=== PATIENT | male | born 1970 ===

== ENCOUNTER 2023-10-05 10:53 | Inpatient (IN) | payer BC, SELFPAY ==
[2023-10-05 14:44] VITALS: BMI 26.1
[2023-10-05] MEDS ORDERED: Senokot S 8.6-50 MG TAB PO PRN (15:08)
[2023-10-05] MEDS ORDERED: Bisacodyl 5 MG TAB PO PRN (15:08)
[2023-10-05] MEDS ORDERED: Ondansetron PF 4 MG/2 ML Vial IVP PRN (15:08)
[2023-10-05] MEDS ORDERED: Bisacodyl 10 MG SUPP PR PRN (15:08)
[2023-10-05 17:07] LABS: PTT 27.2 sec (22.9-36.1)
[2023-10-05 18:12] LABS: Albumin 3.6 g/dL (3.5-5.0); Calcium 8.6 mg/dL (7.8-10.44); Chloride 107 mmol/L (98-107); Potassium 4.2 mmol/L (3.5-5.1); Sodium 137 mmol/L (136-145)
[2023-10-05 18:13] LABS: ALT (SGPT) 12 U/L (8-55); AST (SGOT) 19 U/L (5-34); Alkaline Phosphatase 52 U/L (40-110); Anion Gap 12 mmol/L (10-20); BUN (Urea Nitrogen) 9 mg/dL (8.4-25.7); Bilirubin, Total 0.6 mg/dL (0.2-1.2); Calc. Creatinine Clearance 134 mL/min (70-130); Carbon Dioxide 22 mmol/L (22-29); Estimated GFR 109; Globulin 2.5 g/dL (2.4-3.5); Glucose 100 mg/dL (70-105); Lipase 21 U/L (8-78); Protein, Total 6.1 g/dL (6.0-8.3)
[2023-10-05 18:22] LABS: Troponin I 3.015 ng/mL (< 0.028)
[2023-10-05 19:23] LABS: Critical Call Chem Troponin I NUR.SC14@1923; Troponin I 3.278 ng/mL (< 0.028)
[2023-10-05] MEDS ORDERED: Metoprolol Tartrate 25 MG TAB PO SCH (21:00)
[2023-10-05] MEDS: Nitroglycerin 2% Ointment 1 INCH/1 GM Packet TOP SCH (21:08)
[2023-10-05] MEDS: Atorvastatin Calcium 40 MG TAB PO SCH (21:08)
[2023-10-05] MEDS: Enoxaparin 80 MG (0.8 mL) SYRINGE SC SCH (21:09)
[2023-10-06 03:57] LABS: #Eosinphils 0.1 thou/uL (0.0-0.7); #Monocytes 0.7 thou/uL (0.11-0.59); #Neutrophils 4.1 thou/uL (1.40-6.50); %Basophils 0.4 % (0.0-1.0); %Eosinophils 1.7 % (0.0-10.0); %Lymphocytes 27.8 % (21.0-51.0); %Monocytes 10.3 % (0.0-10.0); %Neutrophils 59.4 % (42.0-75.0); Hematocrit 35.2 % (42.0-52.0); Hemoglobin 11.5 g/dL (14.0-18.0); Mean Corpuscular HGB CONC 32.7 g/dL (32.0-36.0); Mean Corpuscular Hemoglobin 28.3 pg (27.0-31.0); Mean Corpuscular Volume 86.7 fl (78.0-98.0); Mean Platelet Volume 9.8 fL (7.4-10.4); Platelet Count 202 10x3/uL (130-400); RBC Distribution Width 12.7 % (11.5-14.5); Red Blood Cell (RBC) Count 4.06 mill/uL (4.70-6.10); White Blood Cell (WBC) Count 6.9 10x3/uL (4.8-10.8)
[2023-10-06 04:25] LABS: Hemoglobin A1c 5.5 % (4.0-6.0)
[2023-10-06 04:54] LABS: Anion Gap 9 mmol/L (10-20); BUN (Urea Nitrogen) 12 mg/dL (8.4-25.7); Calc. Creatinine Clearance 126 mL/min (70-130); Calcium 8.4 mg/dL (7.8-10.44); Carbon Dioxide 25 mmol/L (22-29); Cardiac Risk 6.5 (Less than 4.5); Chloride 107 mmol/L (98-107); Cholesterol 201 mg/dl (< 200 Desired); Estimated GFR 107; Glucose 101 mg/dL (70-105); HDL Cholesterol 31 mg/dL (>60 Neg Risk); LDL Cholesterol, Calculated 122 mg/dL; Magnesium 2.1 mg/dL (1.6-2.6); Potassium 3.9 mmol/L (3.5-5.1); Sodium 137 mmol/L (136-145); Triglycerides 238 mg/dL (Less than 150)
[2023-10-06 04:55] LABS: ALT (SGPT) 11 U/L (8-55); AST (SGOT) 20 U/L (5-34); Albumin 3.4 g/dL (3.5-5.0); Alkaline Phosphatase 50 U/L (40-110); Bilirubin, Direct 0.1 mg/dL (0.1-0.3); Bilirubin, Total 0.3 mg/dL (0.2-1.2); Protein, Total 5.8 g/dL (6.0-8.3)
[2023-10-06] MEDS: Thyroid 60 MG TAB PO SCH (09:10)
[2023-10-06] MEDS: Aspirin Chewable 81 MG TAB PO SCH (09:10)
[2023-10-06] MEDS ORDERED: Communication Order-Pharmacy FS SCH (20:45)
[2023-10-06] MEDS: Acetaminophen 325 MG TAB PO PRN (23:52)
[2023-10-07 05:43] LABS: #Basophils 0.1 thou/uL (0.0-0.2); #Eosinphils 0.1 thou/uL (0.0-0.7); #Monocytes 0.7 thou/uL (0.11-0.59); #Neutrophils 3.5 thou/uL (1.40-6.50); %Basophils 0.9 % (0.0-1.0); %Eosinophils 1.5 % (0.0-10.0); %Lymphocytes 31.6 % (21.0-51.0); %Monocytes 10.8 % (0.0-10.0); %Neutrophils 54.7 % (42.0-75.0); Hematocrit 41.7 % (42.0-52.0); Hemoglobin 13.5 g/dL (14.0-18.0); Mean Corpuscular HGB CONC 32.4 g/dL (32.0-36.0); Mean Corpuscular Hemoglobin 27.5 pg (27.0-31.0); Mean Corpuscular Volume 84.9 fl (78.0-98.0); Mean Platelet Volume 11.2 fL (7.4-10.4); Platelet Count 162 10x3/uL (130-400); RBC Distribution Width 12.4 % (11.5-14.5); Red Blood Cell (RBC) Count 4.91 mill/uL (4.70-6.10); White Blood Cell (WBC) Count 6.5 10x3/uL (4.8-10.8)
[2023-10-07] MEDS ORDERED: Verapamil 5 MG/2 ML VIAL ONE (06:04)
[2023-10-07] MEDS ORDERED: Heparin 10,000 UNITS/ 10 ML VIAL ONE (06:04)
[2023-10-07] MEDS ORDERED: fentaNYL 50 mcg/mL 1 mL Vial ONE (06:04)
[2023-10-07] MEDS ORDERED: Midazolam HCl 2 mg/2 ml Vial ONE ×2 (06:04→07:03)
[2023-10-07] MEDS ORDERED: Nitroglycerin 50 MG/250 ML BOT 250 ML ONE (06:05)
[2023-10-07] MEDS ORDERED: Lidocaine 1% (PF) 30 ML VIAL ONE (06:05)
[2023-10-07 06:07] LABS: Anion Gap 10 mmol/L (10-20); BUN (Urea Nitrogen) 16 mg/dL (8.4-25.7); Calc. Creatinine Clearance 103 mL/min (70-130); Calcium 8.7 mg/dL (7.8-10.44); Carbon Dioxide 29 mmol/L (22-29); Chloride 103 mmol/L (98-107); Estimated GFR 92; Glucose 97 mg/dL (70-105); Magnesium 2.4 mg/dL (1.6-2.6); Potassium 4.1 mmol/L (3.5-5.1); Sodium 138 mmol/L (136-145)
[2023-10-07] MEDS ORDERED: Ondansetron PF 4 MG/2 ML Vial ONE (07:00)
[2023-10-07] MEDS ORDERED: Sodium Chloride 0.9% 200 ML IV PRN (08:06)
[2023-10-07] MEDS ORDERED: Acetaminophen/Codeine 30-300mg Tablet PO PRN ×2 (08:06)
[2023-10-07] MEDS ORDERED: Nitroglycerin 0.4 MG TAB (25 Tab Bottle) SL PRN (08:06)
[2023-10-07] MEDS ORDERED: Communication Order-Pharmacy FS SCH (11:02)
[2023-10-07] MEDS ORDERED: Iopamidol 370 76% 75 ML VIAL FS ONE (14:26)
[2023-10-08 06:27] LABS: #Eosinphils 0.1 thou/uL (0.0-0.7); #Monocytes 0.9 thou/uL (0.11-0.59); #Neutrophils 5.8 thou/uL (1.40-6.50); %Basophils 0.3 % (0.0-1.0); %Eosinophils 1.3 % (0.0-10.0); %Lymphocytes 20.2 % (21.0-51.0); %Monocytes 10.5 % (0.0-10.0); %Neutrophils 67.2 % (42.0-75.0); Hematocrit 43.5 % (42.0-52.0); Hemoglobin 14.1 g/dL (14.0-18.0); Mean Corpuscular HGB CONC 32.4 g/dL (32.0-36.0); Mean Corpuscular Hemoglobin 27.6 pg (27.0-31.0); Mean Corpuscular Volume 85.3 fl (78.0-98.0); Mean Platelet Volume 11.3 fL (7.4-10.4); Platelet Count 184 10x3/uL (130-400); RBC Distribution Width 12.6 % (11.5-14.5); White Blood Cell (WBC) Count 8.6 10x3/uL (4.8-10.8)
[2023-10-08 06:49] LABS: Anion Gap 14 mmol/L (10-20); BUN (Urea Nitrogen) 12 mg/dL (8.4-25.7); Calc. Creatinine Clearance 112 mL/min (70-130); Calcium 9.1 mg/dL (7.8-10.44); Carbon Dioxide 27 mmol/L (22-29); Chloride 102 mmol/L (98-107); Estimated GFR 102; Glucose 104 mg/dL (70-105); Magnesium 2.2 mg/dL (1.6-2.6); Potassium 4.3 mmol/L (3.5-5.1); Sodium 139 mmol/L (136-145)
[2023-10-08] MEDS ORDERED: Albumin 5% 500 ML ONE (07:04)
[2023-10-08] MEDS ORDERED: PHENYLEPHRINE-NS 100 MCG/ML 10 ML SYRINGE ONE (07:04)
[2023-10-08] MEDS ORDERED: CEFAZOLIN 2 GM VIAL ONE (10:27)
[2023-10-08] MEDS ORDERED: Sodium Chloride 0.9% 100 ML ONE (10:27)
[2023-10-08] MEDS ORDERED: Midazolam HCl 2 mg/2 ml Vial ONE ×3 (10:42→13:02)
[2023-10-08] MEDS ORDERED: Fentanyl 250 MCG/5 ML VIAL ONE (10:42)
[2023-10-08] MEDS ORDERED: PROPOFOL 20 ML ONE (10:42)
[2023-10-08] MEDS ORDERED: Rocuronium Bromide 10 MG/ML (10ML VIAL) ONE (10:44)
[2023-10-08] MEDS ORDERED: Cardioplegic Soln 1,000 ML BAG ONE (11:06)
[2023-10-08] MEDS ORDERED: Protamine Sulfate 250 MG/25 ML VIAL ONE (11:06)
[2023-10-08] MEDS ORDERED: Heparin 30,000 units/30 ml VIAL ONE (11:06)
[2023-10-08] MEDS ORDERED: Esmolol 100 MG/10 ML VIAL ONE (11:06)
[2023-10-08] MEDS ORDERED: Mannitol 12.5 GM/50 ML ONE (11:06)
[2023-10-08] MEDS ORDERED: Heparin 5,000 UNITS/ML VIAL ONE (11:06)
[2023-10-08] MEDS ORDERED: Papaverine 60 MG/2 ML VIAL ONE (11:06)
[2023-10-08] MEDS ORDERED: Potassium Chloride 60 mEq (30 mL) VIAL ONE (11:06)
[2023-10-08] MEDS ORDERED: Calcium Chloride 1 GM/10 ML Abboject SYRINGE ONE (11:06)
[2023-10-08] MEDS ORDERED: Vancomycin 1 GM VIAL ONE (11:06)
[2023-10-08] MEDS ORDERED: Sodium Bicarb 50 mEq/50 ML VIAL ONE (11:06)
[2023-10-08] MEDS ORDERED: Magnesium 5 GM/10 ML VIAL ONE (11:06)
[2023-10-08] MEDS ORDERED: Aminocaproic Acid 5 GM/20 ML VIAL ONE (11:06)
[2023-10-08] MEDS ORDERED: Thrombin 5000 UNITS/5 ML VIAL ONE (11:06)
[2023-10-08] MEDS ORDERED: Lidocaine 2% PF 100 mg/5 ml Syringe ONE (11:06)
[2023-10-08] MEDS ORDERED: ePHEDrine Sulfate 50 MG/10 ML VIAL ONE (11:16)
[2023-10-08] MEDS ORDERED: fentaNYL PF 100 MCG/2 ML SYRINGE ONE (13:02)
[2023-10-08 14:16] LABS: Actual Bicarbonate (HCO3a) 20.8 mEq/L (22-28); Analyzer IN Cardio OR; CO2 Tension 41.4 mmHg (35.0-45.0); Calcium, Ionized (arterial) 1.02 mmol/L (1.12-1.30); Carboxyhemoglobin (COHb) 0.3 gm% (0.0-3.0); Hematocrit-ABG 29 % (42.0-52.0); Hemoglobin (Hb) 9.7 g/dL (14.0-18.0); O2 Tension (PaO2), arterial 270.7 mmHg (80.0-100.0); Potassium - ABG Lab 5.31 mmol/L (3.70-5.30); pH, Arterial 7.319 (7.35-7.45)
[2023-10-08 14:16] LABS: Actual Bicarbonate (HCO3a) 19.7 mEq/L (22-28); Analyzer IN Cardio OR; Base Excess (BEa) -3.9 mEq/L (-2.0 to +3.0); CO2 Tension 31.8 mmHg (35.0-45.0); Carboxyhemoglobin (COHb) 0.7 gm% (0.0-3.0); Hematocrit-ABG 37 % (42.0-52.0); Hemoglobin (Hb) 12.6 g/dL (14.0-18.0); O2 Tension (PaO2), arterial 407.8 mmHg (80.0-100.0); Potassium - ABG Lab 3.96 mmol/L (3.70-5.30); pH, Arterial 7.411 (7.35-7.45)
[2023-10-08 14:16] LABS: Actual Bicarbonate (HCO3a) 25.6 mEq/L (22-28); Analyzer IN Cardio OR; Base Excess (BEa) 1.7 mEq/L (-2.0 to +3.0); Calcium, Ionized (arterial) 1.12 mmol/L (1.12-1.30); Carboxyhemoglobin (COHb) 0.7 gm% (0.0-3.0); Hematocrit-ABG 41 % (42.0-52.0); Hemoglobin (Hb) 13.9 g/dL (14.0-18.0); O2 Tension (PaO2), arterial 532.6 mmHg (80.0-100.0); Potassium - ABG Lab 4.12 mmol/L (3.70-5.30); pH, Arterial 7.447 (7.35-7.45)
[2023-10-08 14:16] LABS: Actual Bicarbonate (HCO3a) 25.7 mEq/L (22-28); Analyzer IN Cardio OR; Base Excess (BEa) 0.1 mEq/L (-2.0 to +3.0); CO2 Tension 45.5 mmHg (35.0-45.0); Calcium, Ionized (arterial) 1.02 mmol/L (1.12-1.30); Carboxyhemoglobin (COHb) 0.3 gm% (0.0-3.0); Hematocrit-ABG 29 % (42.0-52.0); O2 Tension (PaO2), arterial 326.4 mmHg (80.0-100.0); Potassium - ABG Lab 5.61 mmol/L (3.70-5.30); pH, Arterial 7.369 (7.35-7.45)
[2023-10-08 14:17] LABS: Actual Bicarbonate (HCO3a) 20.8 mEq/L (22-28); Analyzer IN Cardio OR; Base Excess (BEa) -2.7 mEq/L (-2.0 to +3.0); CO2 Tension 31.2 mmHg (35.0-45.0); Calcium, Ionized (arterial) 1.15 mmol/L (1.12-1.30); Carboxyhemoglobin (COHb) 0.3 gm% (0.0-3.0); Hematocrit-ABG 30 % (42.0-52.0); Hemoglobin (Hb) 10.1 g/dL (14.0-18.0); O2 Tension (PaO2), arterial 361.8 mmHg (80.0-100.0); Potassium - ABG Lab 4.92 mmol/L (3.70-5.30); pH, Arterial 7.441 (7.35-7.45)
[2023-10-08 14:17] LABS: Puncture Site Arterial Line
[2023-10-08 14:17] LABS: Puncture Site Arterial Line
[2023-10-08 14:18] LABS: Puncture Site Arterial Line
[2023-10-08 14:18] LABS: Puncture Site Arterial Line
[2023-10-08 14:18] LABS: Puncture Site Arterial Line
[2023-10-08] MEDS ORDERED: niCARdipine 25 MG in Sodium Chloride 0.9% 250 ML 250 ML IVPB PRN (14:38)
[2023-10-08] MEDS ORDERED: DOPamine 400 MG/D5W 250 ML 250 ML IVPB PRN (14:38)
[2023-10-08] MEDS ORDERED: Promethazine HCl 25 MG/ML VIAL IM PRN (14:38)
[2023-10-08] MEDS ORDERED: NOREPINEPHRINE 8 MG/250 ML-D5W 250 ML IVPB PRN (14:38)
[2023-10-08] MEDS ORDERED: HYDROcodone/Acetaminophen 5/325 mg Tablet PO PRN (14:38)
[2023-10-08] MEDS ORDERED: Hetastarch 6% 500 ML 500 ML IVPB PRN (14:38)
[2023-10-08] MEDS ORDERED: Post-Op Insulin Drip Protocol IVPB PRN (14:38)
[2023-10-08] MEDS ORDERED: Potassium Chloride 20 MEQ (100 mL) BAG IVPB PRN (14:38)
[2023-10-08] MEDS ORDERED: Mag-Al 1200 mg/1200 mg/30 ML UDCUP PO PRN (14:38)
[2023-10-08] MEDS ORDERED: Bisacodyl 5 MG TAB PO PRN (14:38)
[2023-10-08] MEDS ORDERED: Bisacodyl 10 MG SUPP PR PRN (14:38)
[2023-10-08] MEDS ORDERED: Ipratropium/Albuterol 3 ML NEB NEB PRN (14:38)
[2023-10-08] MEDS ORDERED: Glucagon 1 MG/ML KIT SC PRN (14:45)
[2023-10-08] MEDS ORDERED: Dextrose 50% Abboject 50 ML SYRINGE SLOW IVP PRN (14:45)
[2023-10-08] MEDS ORDERED: HUMULIN R 100 UNITS in Sodium Chloride 0.9% 100 ML IVPB SCH (14:45)
[2023-10-08] MEDS ORDERED: Dextrose 5% in Water 1,000 ML IV PRN (14:45)
[2023-10-08 14:46] LABS: Base Excess (BEa) -1.1 mEq/L (-2.0 to +3.0); CO2 Tension 31.7 mmHg (35.0-45.0); Carboxyhemoglobin (COHb) 0.3 gm% (0.0-3.0); Hematocrit-ABG 35 % (42.0-52.0); Hemoglobin (Hb) 11.9 g/dL (14.0-18.0); O2 Tension (PaO2), arterial 112.4 mmHg (80.0-100.0); Potassium - ABG Lab 4.53 mmol/L (3.70-5.30); pH, Arterial 7.459 (7.35-7.45)
[2023-10-08 14:48] LABS: ALV-art Gradient 133.175 mmHg (0-20); Puncture Site Arterial Line
[2023-10-08 14:48] LABS: #Eosinphils 0.1 thou/uL (0.0-0.7); #Monocytes 0.7 thou/uL (0.11-0.59); #Neutrophils 9.7 thou/uL (1.40-6.50); %Basophils 0.3 % (0.0-1.0); %Eosinophils 0.6 % (0.0-10.0); %Lymphocytes 9.1 % (21.0-51.0); %Monocytes 5.8 % (0.0-10.0); %Neutrophils 83.6 % (42.0-75.0); Hemoglobin 11.3 g/dL (14.0-18.0); Mean Corpuscular HGB CONC 33.2 g/dL (32.0-36.0); Mean Corpuscular Hemoglobin 28.3 pg (27.0-31.0); Mean Platelet Volume 9.8 fL (7.4-10.4); Platelet Count 159 10x3/uL (130-400); RBC Distribution Width 12.6 % (11.5-14.5); White Blood Cell (WBC) Count 11.6 10x3/uL (4.8-10.8)
[2023-10-08] MEDS ORDERED: Potassium Chloride 20 MEQ in Premix 1 BAG IVPB PRN (14:49)
[2023-10-08 15:00] LABS: INR-International Normal Ratio 1.2; PTT 26.9 sec (22.9-36.1); Prothrombin Time 15.5 sec (12.0-14.7)
[2023-10-08] MEDS: fentaNYL 50 mcg/mL 1 mL Vial SLOW IVP PRN ×2 (15:05→16:57)
[2023-10-08] MEDS: Lactated Ringer's 1,000 ML IV SCH (15:17)
[2023-10-08] MEDS: Nitroglycerin 50 MG/250 ML BOT 250 ML IVPB PRN (15:19)
[2023-10-08 15:22] LABS: Anion Gap 9 mmol/L (10-20); BUN (Urea Nitrogen) 10 mg/dL (8.4-25.7); Calc. Creatinine Clearance 133 mL/min (70-130); Calcium 7.8 mg/dL (7.8-10.44); Carbon Dioxide 26 mmol/L (22-29); Chloride 108 mmol/L (98-107); Estimated GFR 108; Glucose 140 mg/dL (70-105); Potassium 4.6 mmol/L (3.5-5.1); Sodium 138 mmol/L (136-145)
[2023-10-08 15:44] LABS: Actual Bicarbonate (HCO3a) 22.7 mEq/L (22-28); CO2 Tension 30.8 mmHg (35.0-45.0); Calcium, Ionized (arterial) 1.09 mmol/L (1.12-1.30); Carboxyhemoglobin (COHb) 0.6 gm% (0.0-3.0); Hematocrit-ABG 36 % (42.0-52.0); Hemoglobin (Hb) 12.2 g/dL (14.0-18.0); O2 Tension (PaO2), arterial 150.9 mmHg (80.0-100.0); Potassium - ABG Lab 4.21 mmol/L (3.70-5.30); pH, Arterial 7.485 (7.35-7.45)
[2023-10-08 15:49] LABS: Puncture Site Arterial Line
[2023-10-08] MEDS: Morphine 2 MG/ML VIAL SLOW IVP PRN (15:52)
[2023-10-08] MEDS: Ketorolac Tromethamine 30 MG (1 mL) VIAL IVP SCH ×2 (16:47→21:02)
[2023-10-08] MEDS: CEFAZOLIN 2 GM in Sodium Chloride 0.9% 100 ML IVPB SCH (17:05)
[2023-10-08] MEDS: HYDROcodone/Acetaminophen 5/325 mg Tablet PO PRN (19:42)
[2023-10-08] MEDS: Atorvastatin Calcium 20 MG TAB PO SCH (20:02)
[2023-10-08] MEDS: Famotidine/PF 20 mg/2ml Vial SLOW IVP SCH (20:02)
[2023-10-08] MEDS: hydrALAZINE 20 MG/ML VIAL SLOW IVP PRN (20:19)
[2023-10-08] MEDS: Ondansetron PF 4 MG/2 ML Vial IVP PRN (20:25)
[2023-10-08] MEDS: Insulin Regular 300 UNITS/3 ML VIAL SC PRN (20:28)
[2023-10-08 20:32] LABS: Hematocrit 33.7 % (42.0-52.0); Hemoglobin 11.2 g/dL (14.0-18.0)
[2023-10-08 20:48] LABS: Potassium 4.8 mmol/L (3.5-5.1)
[2023-10-08] MEDS: Albumin 5% 12.5 GM (250 mL) BOT IVPB PRN (21:16)
[2023-10-09] MEDS: fentaNYL 50 mcg/mL 1 mL Vial SLOW IVP PRN (02:06)
[2023-10-09] MEDS: Albumin 5% 12.5 GM (250 mL) BOT IVPB PRN (04:04)
[2023-10-09 04:44] LABS: #Monocytes 1.1 thou/uL (0.11-0.59); #Neutrophils 7.8 thou/uL (1.40-6.50); %Basophils 0.1 % (0.0-1.0); %Lymphocytes 9.3 % (21.0-51.0); %Monocytes 11.4 % (0.0-10.0); %Neutrophils 78.9 % (42.0-75.0); Hematocrit 30.3 % (42.0-52.0); Hemoglobin 9.9 g/dL (14.0-18.0); Mean Corpuscular HGB CONC 32.7 g/dL (32.0-36.0); Mean Corpuscular Hemoglobin 28.3 pg (27.0-31.0); Mean Corpuscular Volume 86.6 fl (78.0-98.0); Mean Platelet Volume 11.2 fL (7.4-10.4); Platelet Count 159 10x3/uL (130-400); RBC Distribution Width 13.1 % (11.5-14.5); White Blood Cell (WBC) Count 9.9 10x3/uL (4.8-10.8)
[2023-10-09 05:01] LABS: Anion Gap 7 mmol/L (10-20); BUN (Urea Nitrogen) 12 mg/dL (8.4-25.7); Calc. Creatinine Clearance 124 mL/min (70-130); Calcium 7.9 mg/dL (7.8-10.44); Carbon Dioxide 29 mmol/L (22-29); Chloride 105 mmol/L (98-107); Estimated GFR 108; Glucose 130 mg/dL (70-105); Potassium 4.1 mmol/L (3.5-5.1); Sodium 137 mmol/L (136-145)
[2023-10-09] MEDS: Aspirin Chewable 81 MG TAB PO SCH (08:28)
[2023-10-09] MEDS: Thyroid 60 MG TAB PO SCH (08:29)
[2023-10-09] MEDS: Polyethylene Glycol 3350 17 GM Packet PO SCH (08:30)
[2023-10-09] MEDS ORDERED: Insulin Glargine 30 UNITS/0.3 ML VIAL SC PRN (14:41)
[2023-10-09] MEDS: Acetaminophen 325 MG TAB PO PRN (17:05)
[2023-10-10 03:52] LABS: #Neutrophils 7.6 thou/uL (1.40-6.50); %Basophils 0.1 % (0.0-1.0); %Eosinophils 0.2 % (0.0-10.0); %Lymphocytes 10.9 % (21.0-51.0); %Monocytes 10.2 % (0.0-10.0); %Neutrophils 78.2 % (42.0-75.0); Hematocrit 26.2 % (42.0-52.0); Hemoglobin 8.5 g/dL (14.0-18.0); Mean Corpuscular HGB CONC 32.4 g/dL (32.0-36.0); Mean Corpuscular Hemoglobin 28.5 pg (27.0-31.0); Mean Corpuscular Volume 87.9 fl (78.0-98.0); Mean Platelet Volume 9.7 fL (7.4-10.4); Platelet Count 147 10x3/uL (130-400); RBC Distribution Width 12.9 % (11.5-14.5); Red Blood Cell (RBC) Count 2.98 mill/uL (4.70-6.10); White Blood Cell (WBC) Count 9.8 10x3/uL (4.8-10.8)
[2023-10-10 04:38] LABS: Anion Gap 9 mmol/L (10-20); BUN (Urea Nitrogen) 10 mg/dL (8.4-25.7); Calc. Creatinine Clearance 122 mL/min (70-130); Calcium 8.1 mg/dL (7.8-10.44); Carbon Dioxide 27 mmol/L (22-29); Chloride 106 mmol/L (98-107); Estimated GFR 107; Glucose 116 mg/dL (70-105); Potassium 3.9 mmol/L (3.5-5.1); Sodium 138 mmol/L (136-145)
[2023-10-10] MEDS ORDERED: Nitroglycerin 0.4 MG TAB (25 Tab Bottle) SL PRN (13:04)
[2023-10-10] MEDS ORDERED: Artificial Tear Sol 15 ML BOT EA EYE PRN (13:04)
[2023-10-10] MEDS ORDERED: Mineral Oil ENEMA PR PRN (13:04)
[2023-10-10] MEDS: Famotidine 20 MG TAB PO SCH ×2 (13:18→21:09)
[2023-10-10] MEDS: Insulin Regular 300 UNITS/3 ML VIAL ONE (18:24)
[2023-10-11 05:29] LABS: #Eosinphils 0.1 thou/uL (0.0-0.7); #Monocytes 0.8 thou/uL (0.11-0.59); #Neutrophils 6.7 thou/uL (1.40-6.50); %Basophils 0.1 % (0.0-1.0); %Eosinophils 1.1 % (0.0-10.0); %Lymphocytes 12.6 % (21.0-51.0); %Monocytes 8.9 % (0.0-10.0); %Neutrophils 76.7 % (42.0-75.0); Hematocrit 24.3 % (42.0-52.0); Hemoglobin 7.9 g/dL (14.0-18.0); Mean Corpuscular HGB CONC 32.5 g/dL (32.0-36.0); Mean Corpuscular Hemoglobin 28.5 pg (27.0-31.0); Mean Corpuscular Volume 87.7 fl (78.0-98.0); Mean Platelet Volume 10.1 fL (7.4-10.4); Platelet Count 168 10x3/uL (130-400); RBC Distribution Width 12.8 % (11.5-14.5); Red Blood Cell (RBC) Count 2.77 mill/uL (4.70-6.10); White Blood Cell (WBC) Count 8.8 10x3/uL (4.8-10.8)
[2023-10-11 05:59] LABS: Anion Gap 9 mmol/L (10-20); BUN (Urea Nitrogen) 12 mg/dL (8.4-25.7); Calc. Creatinine Clearance 127 mL/min (70-130); Calcium 8.5 mg/dL (7.8-10.44); Carbon Dioxide 29 mmol/L (22-29); Chloride 104 mmol/L (98-107); Estimated GFR 106; Glucose 103 mg/dL (70-105); Potassium 3.9 mmol/L (3.5-5.1); Sodium 138 mmol/L (136-145)
[2023-10-11] MEDS: Furosemide 40 MG TAB PO SCH (08:18)
[2023-10-11] MEDS: Metoprolol Tartrate 25 MG TAB PO SCH (08:18)
[2023-10-11] MEDS: Potassium Chloride 10 MEQ TAB PO SCH (08:18)
[2023-10-11] MEDS: Iron Polysaccharides Complex 150 MG CAP PO SCH (08:18)
[2023-10-11] MEDS: Guaifenesin DM 100-10/5 ML UDCUP PO PRN (17:14)
[2023-10-12 06:04] LABS: #Eosinphils 0.2 thou/uL (0.0-0.7); #Monocytes 0.8 thou/uL (0.11-0.59); #Neutrophils 5.5 thou/uL (1.40-6.50); %Basophils 0.1 % (0.0-1.0); %Eosinophils 2.2 % (0.0-10.0); %Lymphocytes 16.3 % (21.0-51.0); %Monocytes 10.5 % (0.0-10.0); %Neutrophils 70.6 % (42.0-75.0); Hematocrit 25.2 % (42.0-52.0); Mean Corpuscular HGB CONC 31.7 g/dL (32.0-36.0); Mean Corpuscular Hemoglobin 27.5 pg (27.0-31.0); Mean Corpuscular Volume 86.6 fl (78.0-98.0); Mean Platelet Volume 9.7 fL (7.4-10.4); Platelet Count 236 10x3/uL (130-400); RBC Distribution Width 12.9 % (11.5-14.5); Red Blood Cell (RBC) Count 2.91 mill/uL (4.70-6.10); White Blood Cell (WBC) Count 7.8 10x3/uL (4.8-10.8)
[2023-10-12 07:48] VITALS: BP 123/74; TEMP 97.5
== END 2023-10-12 11:55 | disposition home or self-care (01) | DRG 234 ==
LOC: 2SW 10:53 → OBSVTOIN 10-06 13:00 → CCU 10-08 09:55 → 2NO 10-11 22:08
PROVIDERS: ADMIT Family Medicine; ATTEND Family Medicine
PROC: 4A023N7 Measurement of Cardiac Sampling and Pressure, Left Heart, Percutaneous Approach (ICD-10-PCS; 2023-10-07)
PROC: B2111ZZ Fluoroscopy of Multiple Coronary Arteries using Low Osmolar Contrast (ICD-10-PCS; 2023-10-07)
PROC: 021009W Bypass Coronary Artery, One Artery from Aorta with Autologous Venous Tissue, Open Approach (ICD-10-PCS; principal; 2023-10-08)
PROC: 02100Z9 Bypass Coronary Artery, One Artery from Left Internal Mammary, Open Approach (ICD-10-PCS; 2023-10-08)
PROC: 06BQ4ZZ Excision of Left Saphenous Vein, Percutaneous Endoscopic Approach (ICD-10-PCS; 2023-10-08)
PROC: 03BC4ZZ Excision of Left Radial Artery, Percutaneous Endoscopic Approach (ICD-10-PCS; 2023-10-08)
PROC: 02110AW Bypass Coronary Artery, Two Arteries from Aorta with Autologous Arterial Tissue, Open Approach (ICD-10-PCS; 2023-10-08)
PROC: 03BB4ZZ Excision of Right Radial Artery, Percutaneous Endoscopic Approach (ICD-10-PCS; 2023-10-08)
PROC: 5A1221Z Performance of Cardiac Output, Continuous (ICD-10-PCS; 2023-10-08)
PROC: 02L70CK Occlusion of Left Atrial Appendage with Extraluminal Device, Open Approach (ICD-10-PCS; 2023-10-08)
DX: I21.4 Non-ST elevation (NSTEMI) myocardial infarction (principal); I10 Essential (primary) hypertension; E03.9 Hypothyroidism, unspecified; E78.00 Pure hypercholesterolemia, unspecified; I25.10 Atherosclerotic heart disease of native coronary artery without angina pectoris; D64.9 Anemia, unspecified; I25.2 Old myocardial infarction; Z79.82 Long term (current) use of aspirin; Z79.899 Other long term (current) drug therapy
CPT/HCPCS: 36415; 36416; 71045; 80048; 80053; 80061; 80076; 82805; 83036; 83690; 83735; 84443; 84484; 85025; 85347; 85610; 85730; 86850; 86900; 86901; 93005; 93010; 93306; 93458; 93798; 94002; 94760; 96372; 99152; 99153; A4311; A4648; A6448; C1713; C1751; C1769; C1887; C1894; G0378; J0360; J1644; J1650; J1815; J1885; J2001; J2150; J2250; J2272; J2405; J2440; J2704; J2720; J3010; J3370; J3475; J3480; J3490; J7120; P9045; Q9967; S0017; S0028